=== PATIENT | female | born 1995 | race Caucasian/White ===

== ENCOUNTER 2017-09-24 20:45 | Emergency (ER) | payer BC ==
[2017-09-24 22:13] LABS: APPEARANCE,URINE SLIGHTLY-CLOUDY; BILIRUBIN,URINE NEGATIVE (NEGATIVE); COLOR,URINE YELLOW; GLUCOSE, URINE NEGATIVE (NEGATIVE); KETONES,URINE NEGATIVE (NEGATIVE); LEUKOCYTE ESTERASE,URINE LARGE (NEGATIVE); NITRITE,URINE NEGATIVE (NEGATIVE); PROTEIN,URINE NEGATIVE (NEGATIVE); URINE SPECIFIC GRAVITY 1.021; UROBILINOGEN,URINE NEGATIVE mg/dL (<2.0)
--- NOTE | 2017-09-24 22:20 | ER Document Report ---
ED GI/ - General Chief Complaint: Urinary Frequency Stated Complaint: URINARY SYMPTOMS Time Seen by Provider: 09/24/17 22:00 Mode of Arrival: Ambulatory Information source: Patient Notes: 22-year-old female presents to ED for complaint of frequent UTIs over the past month. She states she saw a doctor about 2 weeks ago who put on antibiotics for UTI. She states they did a urine and a culture date of the antibiotics that they treated her with were good for the infection she had. She states about a week ago she started having the burning and frequency again and it is gotten worse and now she has pain in bilateral lower back. She states she has never had a pelvic she has never had any kind of STD checking. She is sexually active with her boyfriend. Patient is alert and oriented respirations regular and unlabored speaking in full sentences. TRAVEL OUTSIDE OF THE [place] IN LAST 30 DAYS: No - HPI Patient complains to provider of: Flank pain, Vaginal pain, Other - Frequency urgency and burning with urination flank pain bilateral Onset: Last week Timing/Duration: Gradual, Worse Quality of pain: Burning Severity at maximum: Moderate Severity in ED: Moderate Pain Level: 3 Location: Left flank, Right flank, Suprapubic, Vaginal Vaginal bleeding (Compared to normal period): None Associated symptoms: Urinary frequency, Urinary urgency, Other - burning Exacerbated by: Denies Relieved by: Denies Similar symptoms previously: Yes Recently seen / treated by doctor: Yes - Related Data Allergies/Adverse Reactions: succinylcholine chloride [From Anectine] Allergy (Unknown, Verified 09/24/17 20: 46) Past Medical History - General Information source: Patient - Social History Smoking Status: Never Smoker Cigarette use (# per day): No Chew tobacco use (# tins/day): No Smoking Education Provided: No Frequency of alcohol use: None Drug Abuse: None Occupation: [employer] Lives with: Alone Family History: Reviewed & Not Pertinent Patient has suicidal ideation: No Patient has homicidal ideation: No - Past Medical History Cardiac Medical History: Reports: None Pulmonary Medical History: Reports: None EENT Medical History: Reports: None Neurological Medical History: Reports: None Endocrine Medical History: Reports: None Renal/ Medical History: Reports: Other - Frequent UTIs Malignancy Medical History: Reports: None GI Medical History: Reports: None Musculoskeletal Medical History: Reports None Skin Medical History: Reports None Psychiatric Medical History: Reports: None Traumatic Medical History: Reports: None Infectious Medical History: Reports: None Past Surgical History: Reports: Hx Oral Surgery - Jaw surgery for overbite - Immunizations Immunizations up to date: Yes Hx Diphtheria, Pertussis, Tetanus Vaccination: Yes Review of Systems - Review of Systems Constitutional: No symptoms reported EENT: No symptoms reported Cardiovascular: No symptoms reported Respiratory: No symptoms reported Gastrointestinal: No symptoms reported Genitourinary: Burning, Frequency, Urgency Female Genitourinary: No symptoms reported, Other - Vaginal burning Musculoskeletal: No symptoms reported Skin: No symptoms reported Hematologic/Lymphatic: No symptoms reported Neurological/Psychological: No symptoms reported -: Yes All other systems reviewed and negative Physical Exam - Vital signs Vitals: Temp Pulse Resp BP Pulse Ox 98.3 F 85 14 125/76 100 09/24/17 20:51 09/24/17 20:51 09/24/17 20:51 09/24/17 20:51 09/24/17 20:51 Interpretation: Normal - General General appearance: Appears well, Alert - HEENT Head: Normocephalic, Atraumatic Eyes: Normal Pupils: PERRL - Respiratory Respiratory status: No respiratory distress Chest status: Nontender Breath sounds: Normal Chest palpation: Normal - Cardiovascular Rhythm: Regular Heart sounds: Normal auscultation Murmur: No - Abdominal Inspection: Normal Distension: No distension Bowel sounds: Normal Tenderness: Nontender Organomegaly: No organomegaly - Genitourinary External exam: Normal Speculum exam: Normal Vaginal bleeding: None Bimanuel exam: Normal - Back Back: CVA tenderness - Bilateral - Extremities General upper extremity: Normal inspection, Nontender, Normal color, Normal ROM , Normal temperature General lower extremity: Normal inspection, Nontender, Normal color, Normal ROM , Normal temperature, Normal weight bearing. No: Razia's sign - Neurological Neuro grossly intact: Yes Cognition: Normal Orientation: AAOx4 Lorna Coma Scale Eye Opening: Spontaneous Lorna Coma Scale Verbal: Oriented Lorna Coma Scale Motor: Obeys Commands Lorna Coma Scale Total: 15 Speech: Normal Motor strength normal: LUE, RUE, LLE, RLE Sensory: Normal - Psychological Associated symptoms: Normal affect, Normal mood - Skin Skin Temperature: Warm Skin Moisture: Dry Skin Color: Normal Course - Re-evaluation Re-evalutation: 09/24/17 23:46 Patient elected not to receive treatment for prophylactically for her GC and chlamydia test. She states she does not think she has them and would prefer not to get a shot at this time. She was treated with Keflex for her UTI symptoms and a culture was sent on the urine. Patient was instructed to call tomorrow to find that the results of her GC and chlamydia test or if they were positive she would be called. - Vital Signs Vital signs: Temp Pulse Resp BP Pulse Ox 98.4 F 84 14 118/78 100 09/24/17 23:02 09/24/17 23:02 09/24/17 23:02 09/24/17 23:02 09/24/17 23:02 - Laboratory Laboratory results interpreted by me: 09/24/17 09/24/17 21:40 22:25 Urine Blood SMALL H SMALL H Ur Leukocyte Esterase LARGE H MODERATE H Discharge - Discharge Clinical Impression: UTI (urinary tract infection) Qualifiers: Urinary tract infection type: site unspecified Hematuria presence: without hematuria Qualified Code(s): N39.0 - Urinary tract infection, site not specified Condition: Stable Disposition: HOME, SELF-CARE Additional Instructions: URINARY TRACT INFECTION: Your evaluation indicates that you have a urinary tract infection. This is due to germs growing in the bladder. This is a common problem. This infection usually responds quickly to antibiotics. Your antibiotic should be taken exactly as prescribed. Drink plenty of fluids -- three to four quarts a day. Occasionally, a bladder anesthetic will be prescribed to help stop the feeling of urgency until the antibiotic has a chance to clear the infection. This may cause your urine to be dark orange. Certain urine infections require a culture. If the doctor obtained a culture, the results will be back in two days. You should call to see if a change in treatment is needed. A repeat urinalysis after you finish treatment is often recommended. The physician will let you know if further testing is required. Call the doctor if you develop fever, chills, flank pain, inability to urinate, or blood in the urine. CEPHALEXIN: The antibiotic you've been prescribed is a member of the cephalosporin class. This type of antibiotic covers a wide variety of infections, including those of the skin, lungs, and urinary tract. It's useful for staph infections. This antibiotic is slightly similar to the penicillin family. In rare cases , a person who is allergic to penicillin will also be allergic to this medication. If you have had a severe allergic reaction to penicillin, and have not taken this antibiotic since that time, notify your doctor. Antibiotics which cover many germs ("broad spectrum" antibiotics) are more likely to cause diarrhea or "yeast" infections. Women prone to vaginal yeast problems may suffer an attack after taking this antibiotic. In infants, oral thrush (white spots "stuck" on the cheek) or yeast diaper rash may result. See your doctor if these problems occur. Call at once if you develop itching, hives , shortness of breath, or lightheadedness. FOLLOW-UP CARE: If you have been referred to a physician for follow-up care, call the physician s office for an appointment as you were instructed or within the next two days. If you experience worsening or a significant change in your symptoms, notify the physician immediately or return to the Emergency Department at any time for re-evaluation. Prescriptions: Cephalexin Monohydrate [Keflex 500 mg Capsule] 500 mg PO Q6H 10 Days capsule Referrals: BLAINE CHANDRA MD [ACTIVE STAFF] - Follow up as needed
[2017-09-24 22:40] LABS: APPEARANCE,URINE SLIGHTLY-CLOUDY; BILIRUBIN,URINE NEGATIVE (NEGATIVE); COLOR,URINE YELLOW; GLUCOSE, URINE NEGATIVE (NEGATIVE); KETONES,URINE NEGATIVE (NEGATIVE); LEUKOCYTE ESTERASE,URINE MODERATE (NEGATIVE); NITRITE,URINE NEGATIVE (NEGATIVE); PROTEIN,URINE NEGATIVE (NEGATIVE); URINE SPECIFIC GRAVITY 1.024; UROBILINOGEN,URINE NEGATIVE mg/dL (<2.0)
[2017-09-24 22:43] LABS: RBCS (WET MOUNT) RARE RBCS SEEN; T.VAGINALIS (WET MOUNT) NO TRICHOMONAS SEEN; WBCS (WET MOUNT) FEW WBCS SEEN; YEAST (WET MOUNT) NO YEAST SEEN
[2017-09-24] MEDS ORDERED: CEPHALEXIN 500 MG CAPSULE PO ONE (22:48)
[2017-09-24 23:07] VITALS: BP 118/78
[2017-09-25 00:01] LABS: CHLAM PCR NOT DETECTED (NOT DETECT); GON PCR NOT DETECTED (NOT DETECT)
== END 2017-09-24 23:07 | disposition home or self-care (01) ==
LOC: ER 20:45
DX: N39.0 Urinary tract infection, site not specified (principal); R10.2 Pelvic and perineal pain; Z87.440 Personal history of urinary (tract) infections
CPT/HCPCS: 81001; 81025; 87086; 87088; 87186; 87210; 87491; 87591; 99283

== ENCOUNTER 2018-12-04 06:24 | Inpatient (IN) | payer BC ==
[2018-12-04] MEDS ORDERED: RINGERS SOLUTION,LACTATED 1,000 ML IV PRN (06:39)
[2018-12-04] MEDS ORDERED: OXYTOCIN/NORMAL SALINE 20 UNIT/1,000 ML RTUINJ IV PRN (06:39)
[2018-12-04] MEDS ORDERED: RINGERS SOLUTION,LACTATED 300 ML IV ONE (06:39)
[2018-12-04 07:42] LABS: APPEARANCE,URINE SLIGHTLY-CLOUDY; BILIRUBIN,URINE NEGATIVE (NEGATIVE); COLOR,URINE YELLOW; GLUCOSE, URINE NEGATIVE (NEGATIVE); KETONES,URINE NEGATIVE (NEGATIVE); LEUKOCYTE ESTERASE,URINE TRACE (NEGATIVE); NITRITE,URINE NEGATIVE (NEGATIVE); PROTEIN,URINE NEGATIVE (NEGATIVE); URINE SPECIFIC GRAVITY 1.016; UROBILINOGEN,URINE NEGATIVE mg/dL (<2.0)
[2018-12-04] MEDS ORDERED: LIDOCAINE 1% INJ-PF (10 MG/ML) 30 ML SDV ONE (07:44)
[2018-12-04] MEDS ORDERED: MISOPROSTOL 0.2 MG TABLET ONE (07:44)
[2018-12-04] MEDS ORDERED: OXYTOCIN/NORMAL SALINE 20 UNIT/1,000 ML RTUINJ ONE (07:44)
[2018-12-04] MEDS ORDERED: OXYTOCIN 10 UNIT/ML VIAL ONE (07:44)
[2018-12-04 07:49] LABS: ABSOLUTE EOSINOPHILS # (AUTO) 0.2 10^3/uL (0.0-0.6); ABSOLUTE LYMPHOCYTES (AUTO) 1.4 10^3/uL (0.5-4.7); ABSOLUTE MONOCYTES (AUTO) 0.6 10^3/uL (0.1-1.4); ABSOLUTE NEUT (AUTO) 6.9 10^3/uL (1.7-8.2); BASOPHILS % (AUTO) 0.3 % (0-2); EOSINOPHILS % (AUTO) 1.8 % (0-6); HEMATOCRIT 34.3 % (36.0-47.0); HEMOGLOBIN 11.5 g/dL (12.0-15.5); LYMPHOCYTES % (AUTO) 15.1 % (13-45); MEAN CORPUSCULAR HGB CONC 33.5 g/dL (32.0-36.0); MEAN CORPUSCULAR VOLUME 84 fl (80-97); MONOCYTES % (AUTO) 6.5 % (3-13); PLATELET COUNT 211 10^3/uL (150-450); RED BLOOD COUNT 4.11 10^6/uL (3.72-5.28); RED CELL DISTRIBUTION WIDTH 13.9 % (11.5-14.0); SEGMENTED NEUTROPHILS % (AUTO) 76.3 % (42-78); TOTAL CELLS COUNTED % (AUTO) 100 %
[2018-12-04 08:05] LABS: URINE AMPHETAMINES SCREEN NEGATIVE; URINE BARBITURATES SCREEN NEGATIVE; URINE BENZODIAZEPINES SCREEN NEGATIVE; URINE COCAINE SCREEN NEGATIVE; URINE MARIJUANA (THC) SCREEN NEGATIVE; URINE METHADONE SCREEN NEGATIVE; URINE PHENCYCLIDINE SCREEN NEGATIVE
--- NOTE | 2018-12-04 11:25 | Admission Physical ---
Datetime Report Generated by CPN: 12/04/2018 11:25 CURRENT ADMISSION Hx Assessment: The History has been Reviewed and is Current Chief Complaint: Scheduled Induction of Labor Indication for Induction: Postterm Admit Impression : Postterm, Intrauterine ; No Active Labor; Induction of Labor Admit Plan: Admit to Unit ALLERGIES Medication Allergies: Yes Medication Allergies: succinylcholine chloride (12/04/2018) Latex: No Latex Allergies OBSTETRICAL HISTORY EDC: 11/27/2018 00:00 : 1 Para: 0 Term: 0 : 0 SAB: 0 IAB: 0 Ectopic: 0 Livin Cesareans: 0 VBACs: 0 Multiple Births: 0 Gestational Diabetes: No Rh Sensitization: No Incompetent Cervix: No MAIDA: No Infertility: No ART Treatment: No Uterine Anomaly: No IUGR: No Hx Previous C/S: No Macrosomia: No Hx Loss/Stillborn: No PIH: No Hx : No Placenta Previa/Abruption: No Depression/PP Depression: No PTL/PROM: No Post Hemorrhage: No Obstetrical History Comments: G1 - current SEE RECORDS Alcohol: No Marijuana : No Cocaine: No Other Illicit Drugs: No Cigarettes: Never Smoker. 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: No Heart Disease: No Hosp/Surgery: Yes Autoimmune Disorder: No Anesthetic Complications: No Kidney Disease: No Abnormal Pap Smear: No Neuro/Epilepsy: No Psychiatric Disorders: No Other Medical Diseases: No Hepatitis/Liver Disease: No Significant Family History: No Varicosities/Phlebitis: No Trauma/Violence : No Thyroid Dysfunction: No Medical History Comments: jaw surgery 2012 INFECTIOUS HISTORY Gonorrhea: No Genital Herpes: No Chlamydia: No Tuberculosis: No Syphilis: No Hepatitis: No HIV/AIDS Exposure: No Rash or Viral Illness: No HPV: No PHYSICAL EXAM General: Normal HEENT: Normal Neurologic: Normal Thyroid: Normal Heart: Normal Lungs: Normal Breast: Normal Back: Normal Abdomen: Normal Genitourinary Exam: Normal Extremities: Normal DTRs: Normal Pelvic Type: Adequate Physical Exam Comments: G 1, GBS neg Vital Signs: Reviewed FETUS A EGA: 41.0 Monitoring: External US Accelerations: 15X15 Decelerations: None FHR Category: Category I Admit Comment: Admitted to LD for IOL for 41 weeks, Pitocin induction, Cat 1 strip Monitor closely, Epidural if needed PLANS FOR LABOR AND DELIVERY Labor and Delivery: None Pain Management: Natural Feeding Preference: Breast Benefit of Breast Feed Discussed: Yes Circumcision: Yes INFORMED CONSENT Assignment: Kateryna Coy MD Signature: with User ID: [email or web address] : with User ID: [email or web address]
[2018-12-04] MEDS ORDERED: NALBUPHINE HCL INJ 10 MG/1 ML AMPULE INJ ONE ×2 (11:48→11:49)
[2018-12-04] MEDS ORDERED: NALBUPHINE HCL INJ 10 MG/1 ML AMPULE ONE (11:50)
[2018-12-04] MEDS ORDERED: FENTANYL CITRATE INJ/PF 100 MCG/2 ML AMPUL ONE (13:20)
[2018-12-04] MEDS ORDERED: PHENYLEPHRINE HCL INJ/PF 10 MG/1 ML SDV ONE (13:20)
[2018-12-04] MEDS ORDERED: FENTANYL/BUPIVACAINE/NS/PF 300 MCG/150 ML RTUINJ EPI ONE (13:20)
[2018-12-04] MEDS ORDERED: EPHEDRINE SULFATE INJ 50 MG/1 ML AMPULE ONE (13:20)
[2018-12-04] MEDS ORDERED: BUPIVACAINE HCL 0.25 % INJ/PF (2.5 MG/1 ML) 30 ML VIAL ONE (13:21)
[2018-12-04] MEDS ORDERED: DIBUCAINE 1% OINTMENT 56 GM TP PRN (21:40)
[2018-12-04] MEDS ORDERED: BENZOCAINE/MENTHOL AEROSOL SPRAY 56 ML TOP PRN (21:40)
[2018-12-04] MEDS ORDERED: OXYTOCIN/NORMAL SALINE 1,000 ML IV PRN (21:40)
[2018-12-04] MEDS ORDERED: ACETAMINOPHEN WITH CODEINE #3 TABLET PO PRN ×2 (21:40)
[2018-12-04] MEDS ORDERED: ZOLPIDEM TARTRATE 5 MG TABLET PO PRN (21:40)
[2018-12-04] MEDS ORDERED: DIPH/PERTUSS(ACELL)/TETANUS VAC/PF 0.5 ML SYR (>=10YO) IM PRN (21:40)
[2018-12-04] MEDS ORDERED: MEASLES,MUMPS&RUBELLA VACC/PF 0.5 ML VIAL SUBCUT PRN (21:40)
[2018-12-04] MEDS: IBUPROFEN 800 MG TABLET PO SCH (21:55)
[2018-12-05] MEDS: IBUPROFEN 800 MG TABLET PO SCH ×3 (06:13→21:06)
[2018-12-05] MEDS: SENNOSIDES/DOCUSATE 8.6-50 MG 1 EACH TABLET PO SCH ×2 (07:52→09:18)
[2018-12-05] MEDS: PRENATAL VITAMIN W DHA CAPSULE PO SCH (09:18)
[2018-12-05] MEDS: FERROUS SULFATE 325 MG TABLET PO SCH ×2 (09:18→17:35)
[2018-12-05] MEDS: DOCUSATE SODIUM 100 MG CAPSULE PO SCH ×2 (09:18→17:35)
--- NOTE | 2018-12-05 10:29 | PDOC PROGRESS REPORT ---
Subjective-OB Progress Note for:: 12/05/18 Subjective: Doing well, no c/o, , voiding, ambulating Physical Exam (OB) Vital Signs: Temp Pulse Resp BP Pulse Ox 98.2 F 71 18 115/67 98 12/05/18 07:44 12/05/18 07:44 12/05/18 07:44 12/05/18 07:44 12/05/18 07:44 Intake & Output 12/04/18 12/05/18 12/06/18 06:59 06:59 06:59 Intake Total 500 1000 Balance 500 1000 Weight 67.3 kg - PIH/Pre-Eclampsia Headache: Absent Epigastric Pain: No Visual Changes: No - Lochia Lochia Amount: Scant < 10 ml Lochia Color: Rubra/Red - Abdomen Description: Tender, Soft Hernia Present: No Fundal Description: Firm, Midline Fundal Height: u/u - u/2 Objective-Diagnostic Laboratory: 12/04/18 07:25 Assessment and Plan(PN) - Assessment and Plan (1) Delivery normal Is this a current diagnosis for this admission?: Yes (2) Status post induction of labor Is this a current diagnosis for this admission?: Yes - Time Spent with Patient Time with patient: Less than 15 minutes Medications reviewed and adjusted accordingly: Yes - Disposition Anticipated Discharge: Home
[2018-12-06] MEDS: IBUPROFEN 800 MG TABLET PO SCH ×2 (05:29→14:27)
[2018-12-06 08:17] VITALS: BP 113/68
--- NOTE | 2018-12-06 09:06 | PDOC PROGRESS REPORT ---
Subjective-OB Progress Note for:: 12/06/18 Subjective: Doing well, hsb at [facility], , no c/o, ready to go home, scant bleeding Physical Exam (OB) Vital Signs: Temp Pulse Resp BP Pulse Ox 97.9 F 69 18 113/68 97 12/06/18 08:31 12/06/18 08:31 12/06/18 08:31 12/06/18 07:36 12/06/18 08:31 Intake & Output 12/05/18 12/06/18 12/07/18 06:59 06:59 06:59 Intake Total 500 1600 Balance 500 1600 - PIH/Pre-Eclampsia Headache: Absent Epigastric Pain: No Visual Changes: No - Lochia Lochia Amount: Small 10-25 ml Lochia Color: Rubra/Red - Abdomen Description: Tender, Soft Hernia Present: No Fundal Description: Firm, Midline Fundal Height: u/u - u/2 Objective-Diagnostic Laboratory: 12/04/18 07:25 Assessment and Plan(PN) - Assessment and Plan (1) Delivery normal Is this a current diagnosis for this admission?: Yes (2) Status post induction of labor Is this a current diagnosis for this admission?: Yes - Time Spent with Patient Time with patient: Less than 15 minutes Medications reviewed and adjusted accordingly: Yes - Disposition Anticipated Discharge: Home Within: within 24 hours
--- NOTE | 2018-12-06 09:09 | PDOC DISCHARGE SUMMARY ---
Impression - Admit/DC Date/PCP Admission Date/Primary Care Provider: 12/04/18 06:24 Discharge Date: 12/06/18 - Discharge Diagnosis (1) Delivery normal Is this a current diagnosis for this admission?: Yes (2) Status post induction of labor Is this a current diagnosis for this admission?: Yes - Additional Information Resuscitation Status: Full Code Discharge Diet: As Tolerated, Regular Discharge Activity: Activity As Tolerated, No Lifting Over 10 Pounds, No Lifting/Push/Pulling, Pelvic Rest Home Medications: Prenat 115/Iron Fum/Folic/Dss [ 19 Tablet] 115 mg PO DAILY 12/04/18 HPI Gestational Age: 41 Reason(s) for Admission: Induction of Labor Procedures: NST, Ultrasound Intrapartum Procedure(s): Spontaneous Vaginal Delivery Complication(s): Laceration-Periurethral Laceration-Degree: 1st Hospital Course Hospital Course: routine Results Laboratory Results: WBC 9.0 10^3/uL (4.0-10.5) 12/04/18 07:25 RBC 4.11 10^6/uL (3.72-5.28) 12/04/18 07:25 Hgb 11.5 g/dL (12.0-15.5) L 12/04/18 07:25 Hct 34.3 % (36.0-47.0) L 12/04/18 07:25 MCV 84 fl (80-97) 12/04/18 07:25 MCH 28.0 pg (27.0-33.4) 12/04/18 07:25 MCHC 33.5 g/dL (32.0-36.0) 12/04/18 07:25 RDW 13.9 % (11.5-14.0) 12/04/18 07:25 Plt Count 211 10^3/uL (150-450) 12/04/18 07:25 Lymph % (Auto) 15.1 % (13-45) 12/04/18 07:25 [place] % (Auto) 6.5 % (3-13) 12/04/18 07:25 Eos % (Auto) 1.8 % (0-6) 12/04/18 07:25 Baso % (Auto) 0.3 % (0-2) 12/04/18 07:25 Absolute Neuts (auto) 6.9 10^3/uL (1.7-8.2) 12/04/18 07:25 Absolute Lymphs (auto) 1.4 10^3/uL (0.5-4.7) 12/04/18 07:25 Absolute Monos (auto) 0.6 10^3/uL (0.1-1.4) 12/04/18 07:25 Absolute Eos (auto) 0.2 10^3/uL (0.0-0.6) 12/04/18 07:25 Absolute Basos (auto) 0.0 10^3/uL (0.0-0.2) 12/04/18 07:25 Seg Neutrophils % 76.3 % (42-78) 12/04/18 07:25 Urine Color YELLOW 12/04/18 06:40 Urine Appearance SLIGHTLY-CLOUDY 12/04/18 06:40 Urine pH 6.0 (5.0-9.0) 12/04/18 06:40 Ur Specific [place] 1.016 12/04/18 06:40 Urine Protein NEGATIVE mg/dL (NEGATIVE) 12/04/18 06:40 Urine Glucose (UA) NEGATIVE mg/dL (NEGATIVE) 12/04/18 06:40 Urine Ketones NEGATIVE mg/dL (NEGATIVE) 12/04/18 06:40 Urine Blood NEGATIVE (NEGATIVE) 12/04/18 06:40 Urine Nitrite NEGATIVE (NEGATIVE) 12/04/18 06:40 Urine Bilirubin NEGATIVE (NEGATIVE) 12/04/18 06:40 Urine Urobilinogen NEGATIVE mg/dL (<2.0) 12/04/18 06:40 Ur Leukocyte Esterase TRACE (NEGATIVE) H 12/04/18 06:40 Urine Ascorbic Acid NEGATIVE (NEGATIVE) 12/04/18 06:40 Urine Opiates Screen NEGATIVE 12/04/18 06:40 Urine Methadone Screen NEGATIVE 12/04/18 06:40 Ur Barbiturates Screen NEGATIVE 12/04/18 06:40 Ur Phencyclidine Scrn NEGATIVE 12/04/18 06:40 Ur Amphetamines Screen NEGATIVE 12/04/18 06:40 U Benzodiazepines Scrn NEGATIVE 12/04/18 06:40 Urine Cocaine Screen NEGATIVE 12/04/18 06:40 U Marijuana (THC) Screen NEGATIVE 12/04/18 06:40 Blood Type AB POSITIVE 12/04/18 07:25 Antibody Screen NEGATIVE 12/04/18 07:25 Plan Health Concerns: reviewed S&S to report, routine pp care, baby home with parents Plan of Treatment: routine
[2018-12-06] MEDS: DOCUSATE SODIUM 100 MG CAPSULE PO SCH (09:45)
[2018-12-06] MEDS: FERROUS SULFATE 325 MG TABLET PO SCH (09:45)
[2018-12-06] MEDS: SENNOSIDES/DOCUSATE 8.6-50 MG 1 EACH TABLET PO SCH (09:45)
[2018-12-06] MEDS: PRENATAL VITAMIN W DHA CAPSULE PO SCH (09:45)
--- NOTE | 2018-12-09 09:48 | Delivery Summary ---
Del Sum A-C Datetime Report Generated by CPN: 12/09/2018 09:48 DELIVERY PERSONNEL DELIVERY PERSONNEL: [id number] Delivery Doctor:: Eda Eid MD Labor and Delivery Nurse:: Jillian Mchugh RN Cellular Phone Repairer/CATALOG SPECIALIST: Becky Ayers, SEAM FELLER Additional Personnel: : Payal Michaudmansifabian, RNC MATERNAL INFORMATION Delivery Anesthesia: Epidural Medications After Delivery: Pitocin Drip 20 Units/1000ml NSS Estimated Blood Loss (ml): 100 Delivery QBL: 100 Maternal Complications: None Provider Comments: Called to patients room, cervix completely dilated and patient pushing. She further pushed for a short period of time and delivered without incidence. After delivery of the head in JOLENE position, the shoulders and rest of the body followed easily. The cord was clamped after a 30 second delay as the was vigorous. Infant oral and nasal suctioned and then placed skin to skin with Mother. Both stable after delivery. LABOR SUMMARY EDC: 11/27/2018 00:00 No. Babies in Womb: 1 Attempted: No Labor Anesthesia: Epidural LABOR INFORMATION Reason for Induction: Post Dates Onset of Labor: 12/04/2018 11:29 Complete Dilatation: 12/04/2018 17:39 Oxytocin: Induction Group B Beta Strep: neg Antibiotics # of Doses: 0 Steroids Given: None Reason Steroids Not Administered: Not Applicable MEMBRANES Membranes Rupture Method: Artificial Rupture of Membranes: 12/04/2018 11:29 Length of Rupture (hr): 7.10 Amniotic Fluid Color: Clear Amniotic Fluid Amount: Small Amniotic Fluid Odor: None STAGES OF LABOR Stage 1 hr: 6 Stage 1 min: 10 Stage 2 hr: 0 Stage 2 min: 56 Stage 3 hr: 0 Stage 3 min: 4 Total Time in Labor hr: 7 Total Time in Labor min: 10 VAGINAL DELIVERY Episiotomy: None Laceration #1: Periurethral Laceration Extension #1: First Degree Laceration Repair: Yes Laceration Repair Note: Less than 1 cm length first degree periurethral which was repaired with 3-0 chromic in a running locked fashion. Sponge Count Correct: N/A Sharps Count Correct: Yes CSECTION DELIVERY Primary Indication: N/A Secondary Indication: N/A CSection Incidence: N/A Labor: N/A Elective: N/A CSection Incision: N/A BABY A INFORMATION Infant Delivery Date/Time: 12/04/2018 18:35 Method of Delivery: Vaginal Method of Delivery: Vaginal Born in Route : No : N/A Forceps: N/A Vacuum Extraction: N/A Shoulder Dystocia : No PRESENTATION/POSITION BABY A Presentation: Cephalic Cephalic Presentation: Vertex Vertex Position: Right Occipital Anterior Breech Presentation: N/A PLACENTA INFORMATION BABY A Placenta Delivery Time : 12/04/2018 18:39 Placenta Method of Delivery: Spontaneous Placenta Method of Delivery: Spontaneous Placenta Status: Delivered SCORES BABY A Heart Rate 1 min: >100 bpm Resp Effort 1 min: Good Cry Reflex Irritability 1 min: Cough or Sneeze or Pulls Away Muscle Tone 1 min: Active Motion Color 1 min: Body Redbird Smith, Extremities Blue Resuscitation Effort 1 min: Tactile Stimulation SCORE 1 MIN: 9 Heart Rate 5 min: >100 bpm Resp Effort 5 min: Good Cry Reflex Irritability 5 min: Cough or Sneeze or Pulls Away Muscle Tone 5 min: Active Motion Color 5 min: Body Redbird Smith, Extremities Blue Resuscitation Effort 5 min: N/A SCORE 5 MIN: 9 INFANT INFORMATION BABY A Gestational Age at Delivery: 41.0 Gestational Status: Late Term- 41- 41.6 Weeks Outcome : Liveborn Infant Condition : Stable Sex: Male Infant Sex: Male IDENTIFICATION BABY A Infant Verification Date/Time: 12/04/2018 22:46 ID Band Number: [id number] Mother's Name Verified: Yes RN Verifying Infant: David, A. RN Additional Verifying Personnel: Welcome FundsPrasanna RN WEIGHT/LENGTH BABY A Birthweight (gm): 3450 Infant Weight (lb): 7 Weight (oz): 10 Infant Length (in): 20.50 Infant Length (cm): 52.07 CORD INFORMATION BABY A No. Cord Vessels: 3 Nuchal Cord : N/A Cord Blood Taken: Yes-For Storage (Mom's Blood type +) Suction: Mouth; Nose ASSESSMENT BABY A Complications: None Physical Findings at Delivery: Within Normal Limits Infant Respirations: Appears Normal Skin to Skin: Yes Radio Division Lieutenant/ALS Called : No Infant Care By: DPrasanna Rock RN Transferred To: Remains with Mother BABY B INFORMATION : N/A SIGNATURES Signature: with User ID: Mary : with User ID: Mary
== END 2018-12-06 15:18 | disposition home or self-care (01) | DRG 807 ==
LOC: LR 06:24 → 2S 21:06
PROVIDERS: ADMIT Obstetrics & Gynecology; ATTEND Obstetrics & Gynecology
PROC: 10E0XZZ Delivery of Products of Conception, External Approach (ICD-10-PCS; principal; 2018-12-04)
PROC: 0UQMXZZ Repair Vulva, External Approach (ICD-10-PCS; 2018-12-04)
DX: O48.0 Post-term pregnancy (principal); Z37.0 Single live birth; O71.82 Other specified trauma to perineum and vulva; Z3A.41 41 weeks gestation of pregnancy
CPT/HCPCS: 36415; 80307; 81005; 85025; 86592; 86850; 86900; 86901; J2300; J2370; J2590; J3010; J3490

== ENCOUNTER 2020-01-10 00:11 | Emergency (ER) | payer BC, MEDICAID ==
[2020-01-10 01:27] LABS: APPEARANCE,URINE TURBID; BILIRUBIN,URINE NEGATIVE (NEGATIVE); COLOR,URINE YELLOW; GLUCOSE, URINE NEGATIVE (NEGATIVE); KETONES,URINE NEGATIVE (NEGATIVE); LEUKOCYTE ESTERASE,URINE LARGE (NEGATIVE); NITRITE,URINE NEGATIVE (NEGATIVE); PROTEIN,URINE 100 mg/dL (NEGATIVE); URINE SPECIFIC GRAVITY 1.011; UROBILINOGEN,URINE NEGATIVE mg/dL (<2.0)
--- NOTE | 2020-01-10 01:48 | ER Document Report ---
ED Medical Screen (RME) - General Chief Complaint: Flank Pain Stated Complaint: URGENCY,FREQUENCY Time Seen by Provider: 01/10/20 00:34 Mode of Arrival: Ambulatory Information source: Patient Notes: 24-year-old female patient presented to the emergency department with recurrent urinary tract infection. Patient reports she is 18 weeks . She states she has had intermittent UTIs for the last few months. Most recently 2 weeks ago she was treated with Rocephin and put on a prescription of Bactrim. She states she never took the Bactrim as she was worried it might hurt her developin g . She states she spoke to the pharmacist who recommended not taking the medication and to just wait and see if the Rocephin helped. She only received 1 dose of Rocephin. She states that approximately 2 days ago she started having dysuria and urinary frequency as well as left-sided low back pain. She denies any fever chills, reports nausea but denies any vomiting. Patient appears well, nontoxic. No CVA tenderness elicited. I have greeted and performed a rapid initial assessment of this patient. A comprehensive ED assessment and evaluation of the patient, analysis of test resu lts and completion of the medical decision making process will be conducted by additional ED providers. I have specifically instructed the patient or family members with the patient to immediately return to any nursing staff should anything change in the patient's condition or with their chief complaint. TRAVEL OUTSIDE OF THE [place] IN LAST 30 DAYS: No - Related Data Allergies/Adverse Reactions: succinylcholine chloride [From Anectine] Allergy (Unknown, Verified 12/04/18 06:39) Past Medical History - Social History Frequency of alcohol use: None Drug Abuse: None - Past Medical History Cardiac Medical History: Denies: Hx Coronary Artery Disease, Hx Heart Attack, Hx Hypertension Pulmonary Medical History: Denies: Hx Asthma, Hx Bronchitis, Hx COPD, Hx Pneumonia Neurological Medical History: Denies: Hx Cerebrovascular Accident, Hx Seizures Musculoskeltal Medical History: Denies Hx Arthritis Past Surgical History: Reports: Hx Oral Surgery - Jaw surgery for overbite. Denies: Hx Pacemaker - Immunizations Immunizations up to date: Yes Hx Diphtheria, Pertussis, Tetanus Vaccination: Yes Physical Exam - Vital signs Vitals: Temp Pulse Resp BP Pulse Ox 98.3 F 101 H 20 125/67 100 01/10/20 00:19 01/10/20 00:19 01/10/20 00:19 01/10/20 00:19 01/10/20 00:19 Course - Vital Signs Vital signs: Temp Pulse Resp BP Pulse Ox 98.3 F 101 H 20 125/67 100 01/10/20 00:39 01/10/20 00:19 01/10/20 00:19 01/10/20 00:19 01/10/20 00:19 - Laboratory Laboratory results interpreted by me: 01/10/20 00:45 Urine Protein 100 H Urine Blood MODERATE H Ur Leukocyte Esterase LARGE H
[2020-01-10 04:14] LABS: ABSOLUTE EOSINOPHILS # (AUTO) 0.1 10^3/uL (0.0-0.6); ABSOLUTE MONOCYTES (AUTO) 0.6 10^3/uL (0.1-1.4); ABSOLUTE NEUT (AUTO) 10.1 10^3/uL (1.7-8.2); BASOPHILS % (AUTO) 0.3 % (0-2); EOSINOPHILS % (AUTO) 1.2 % (0-6); HEMATOCRIT 37.4 % (36.0-47.0); HEMOGLOBIN 12.9 g/dL (12.0-15.5); LYMPHOCYTES % (AUTO) 8.7 % (13-45); MEAN CORPUSCULAR HEMOGLOBIN 28.9 pg (27.0-33.4); MEAN CORPUSCULAR HGB CONC 34.5 g/dL (32.0-36.0); MEAN CORPUSCULAR VOLUME 84 fl (80-97); MONOCYTES % (AUTO) 5.3 % (3-13); PLATELET COUNT 239 10^3/uL (150-450); RED BLOOD COUNT 4.46 10^6/uL (3.72-5.28); RED CELL DISTRIBUTION WIDTH 13.4 % (11.5-14.0); SEGMENTED NEUTROPHILS % (AUTO) 84.5 % (42-78); TOTAL CELLS COUNTED % (AUTO) 100 %
--- NOTE | 2020-01-10 04:15 | ER Document Report ---
ED GI/ - General Chief Complaint: Flank Pain Stated Complaint: URGENCY,FREQUENCY Time Seen by Provider: 01/10/20 00:34 Primary Care Provider: EDGAR TAYLOR [Primary Care Provider] - Follow up as needed Mode of Arrival: Ambulatory TRAVEL OUTSIDE OF THE [place] IN LAST 30 DAYS: No - HPI Notes: 01/10/20 04:10 Patient is a 24-year-old female who is a G2, P1 at 18 weeks and presents with dysuria, flank pain, left lower quadrant pain. Patient states that she has had a urinary infection for several weeks. She was given a Rocephin shot and started on Bactrim 2 weeks ago by her HOUSEKEEPING AID. Patient did not take the Bactrim because she was afraid of side effects to the baby. She states that the urinary symptoms resolved after the Rocephin shot. Yesterday, she again developed dysuria. She denies any blood in the urine. Today, she developed pain in her left flank. She has had the symptoms off and on since September and has been on numerous antibiotics. She states she has some nausea. No vomiting. No fevers. - Related Data Allergies/Adverse Reactions: succinylcholine chloride [From Anectine] Allergy (Unknown, Verified 12/04/18 06:39) Past Medical History - General Information source: Patient - Social History Smoking Status: Never Smoker Frequency of alcohol use: None Drug Abuse: None Family History: Reviewed & Not Pertinent Patient has homicidal ideation: No - Past Medical History Cardiac Medical History: Denies: Hx Coronary Artery Disease, Hx Heart Attack, Hx Hypertension Pulmonary Medical History: Denies: Hx Asthma, Hx Bronchitis, Hx COPD, Hx Pneumonia Neurological Medical History: Denies: Hx Cerebrovascular Accident, Hx Seizures Musculoskeletal Medical History: Denies Hx Arthritis Past Surgical History: Reports: Hx Oral Surgery - Jaw surgery for overbite. Denies: Hx Pacemaker - Immunizations Immunizations up to date: Yes Hx Diphtheria, Pertussis, Tetanus Vaccination: Yes Review of Systems - Review of Systems Notes: CONSTITUTIONAL: No fever, fatigue or weight loss. SKIN: No rash. HENT: No congestion, ear pain, or sore throat. EYES: No recent vision problems or eye pain. CARDIOVASCULAR: No chest pain or edema. RESPIRATORY: No cough, shortness of breath, congestion, or wheezing. GASTROINTESTINAL: No vomiting, bloody stools or diarrhea. Positive for abdominal pain and nausea. GENITOURINARY: Positive for dysuria. No hematuria. MUSCULOSKELETAL: No joint pain or swelling. LYMPHATIC: No swollen glands. NEUROLOGIC: No seizures. No headache, focal weakness or sensory changes. HEMATOLOGIC: No unusual bruising or bleeding. PSYCHIATRIC: No depression or anxiety. Physical Exam - Vital signs Vitals: Temp Pulse Resp BP Pulse Ox 98.3 F 101 H 20 125/67 100 01/10/20 00:19 01/10/20 00:19 01/10/20 00:19 01/10/20 00:19 01/10/20 00:19 - General General appearance: Appears well Notes: VITAL SIGNS: Within normal limits. GENERAL: No acute distress, non-toxic appearance. HEAD: Normal with no signs of head trauma. EYES: EOMI, conjunctiva normal, no discharge. EARS: Hearing grossly intact. NOSE: Normal. NECK: Normal range of motion, no tenderness, supple, no lymphadenopathy, No adenopathy, no JVD. CHEST: Clear breath sounds bilaterally. No wheezes, rales, or rhonchi. CARDIAC: Regular rate and rhythm. S1 and S2, without murmurs, gallops, or rubs. VASCULAR: No Edema. ABDOMEN: Normal and soft with no tenderness, no masses or pulsatile masses. Discomfort to left flank palpation. GASTROINTESTINAL: Gravid abdomen. GENITOURINARY: Normal, No tenderness MUSCULOSKELETAL: Good range of motion of all major joints. Extremities without clubbing, cyanosis or edema. NEUROLOGICAL: Alert and oriented x 3. No focal sensory or strength deficits. Speech normal. Follows commands appropriately. PSYCHIATRIC: Normal Affect, judgement and mood. SKIN: Normal appearance with no rashes or lesions. Course - Re-evaluation Re-evalutation: 01/10/20 04:14 Patient is has evidence of a UTI. She also has some left lower quadrant abdo garima pain. I will obtain ultrasounds of the flank as well as the abdomen. 01/10/20 06:08 Patient's ultrasound shows left hydronephrosis. I did discuss the results of the ultrasounds with the on-call HOUSEKEEPING AID, Dr. Castañeda. He states that she had a culture that was negative 2 weeks ago. He states that she has had E. coli in November in the urine. She has an allergy to Macrobid. He recommended giving her Rocephin in the ED and sending her home with an antibiotic. Patient will be given Keflex. She was instructed to follow-up with OB. Patient was given strict return precautions for any fevers, vomiting, worsening pain. I asked patient about STDs and she states she was tested and was negative and is not concerned. Denying any vaginal bleeding as well. 01/11/20 01:52 - Vital Signs Vital signs: Temp Pulse Resp BP Pulse Ox 98.5 F 81 18 100/64 100 01/10/20 06:51 01/10/20 06:51 01/10/20 06:51 01/10/20 06:51 01/10/20 06:51 - Laboratory Result Diagrams: 01/10/20 03:53 01/10/20 03:53 Laboratory results interpreted by me: 01/10/20 01/10/20 01/10/20 00:45 03:53 03:53 WBC 12.0 H Lymph % (Auto) 8.7 L Absolute Neuts (auto) 10.1 H Seg Neutrophils % 84.5 H Sodium 134.6 L Carbon Dioxide 21 L BUN 5 L Creatinine 0.46 L Urine Protein 100 H Urine Blood MODERATE H Ur Leukocyte Esterase LARGE H Discharge - Discharge Clinical Impression: Second trimester Urinary tract infection Qualifiers: Urinary tract infection type: site unspecified Hematuria presence: without hematuria Qualified Code(s): N39.0 - Urinary tract infection, site not specified Hydronephrosis Qualifiers: Hydronephrosis type: other Qualified Code(s): N13.39 - Other hydronephrosis Disposition: HOME, SELF-CARE Admitting Provider: [facility] Instructions: ([facility]), Urinary Tract Infection ([facility]) Additional Instructions: Please follow-up with your HOUSEKEEPING AID. Take your antibiotics as prescribed. Please return to the ER for any vomiting, worsening pain, fever, any other concerning symptoms. Prescriptions: Cephalexin Monohydrate [Keflex 500 mg Capsule] 500 mg PO QID 7 Days #28 capsule Referrals: LOCALMD,NO [Primary Care Provider] - Follow up as needed
[2020-01-10 04:54] LABS: ALBUMIN 3.5 g/dL (3.5-5.0); ALKALINE PHOSPHATASE 50 U/L (38-126); ANION GAP 10 (5-19); ASPARTATE AMINO TRANSFERASE 20 U/L (14-36); BILIRUBIN,TOTAL 0.3 mg/dL (0.2-1.3); BLOOD UREA NITROGEN 5 mg/dL (7-20); CARBON DIOXIDE 21 mmol/L (22-30); CHLORIDE 104 mmol/L (98-107); GLUCOSE 87 mg/dL (75-110); TOTAL PROTEIN 6.3 g/dL (6.3-8.2)
--- NOTE | 2020-01-10 05:13 | RADIOLOGY REPORT (SQ) ---
Obstetric ultrasound: 01/10/2020 4:10 AM RE[employer] HISTORY: 24-year-old female with left-sided abdominal pain. TECHNIQUE: Multiple grayscale and color Doppler images of the pelvis were obtained transabdominally. COMPARISON: None available for this . FINDINGS: A single intrauterine gestation is seen, which is breech in position. The placenta is anterior in location, and free of internal os of the cervix. The estimated heart rate is approximately 125 bpm. The cervix measures at least 3.3 cm in length. The AMANDA is subjectively within normal limits with the deepest vertical pocket of approximately 3.5 cm. The bilateral ovaries were not well visualized. The following measurements were obtained: BPD: 4.2 cm, consistent with 18 weeks and 4 day(s). HC: 15.4 cm, consistent with 18 weeks and 2 day(s). AC: 13.4 cm, consistent with 18 weeks and 6 day(s). FL: 2.7 cm, consistent with 18 weeks and 2 day(s). The estimated weight is approximately 246 g +/- 15%. The fetus measures at 18 weeks and 4 day(s) by AUA, consistent with an estimated due date of 06/08/20. This is different than the prior estimated due date of 06/07/2020. IMPRESSION: A single, live intrauterine gestation is seen which is currently breech in position. The fetus measures at 18 weeks and 4 day(s) by AUA, consistent with an estimated due date of 06/08/2020.. 2.Detailed anatomic assessment was not performed. Interval follow-up with an obstetric care provider is recommended.
--- NOTE | 2020-01-10 05:25 | RADIOLOGY REPORT (SQ) ---
RENAL ULTRASOUND: 01/10/2020 4:22 AM [employer]OR [employer] CLERK HISTORY: 24-year old with left-sided flank pain. COMPARISON: None available TECHNIQUE: Limited sonographic evaluation of the kidneys was performed. FINDINGS: Both kidneys demonstrate normal cortical echogenicity. The right kidney measures up to 10.0 cm in length. The left kidney measures up to 12.6 cm in length. There is mild right and moderate left hydronephrosis present which is more than what would be expected for . No free intraperitoneal fluid is seen. The visualized portions of the urinary bladder appear grossly unremarkable. Bilateral ureteral jets are seen. The abdominal aorta and inferior vena cava are not well visualized. A single intrauterine gestation is partially visualized. IMPRESSION: There is mild right and moderate left hydronephrosis.
[2020-01-10] MEDS ORDERED: NORMAL SALINE 1000 ML 1,000 ML IV ONE (05:36)
[2020-01-10] MEDS ORDERED: CEFTRIAXONE 1 GM/D5W RTU 1 GM/50 ML RTUPB IV ONE (05:52)
[2020-01-10] MEDS ORDERED: ACETAMINOPHEN 325 MG TABLET PO ONE (06:07)
[2020-01-10 06:55] VITALS: BP 100/64
== END 2020-01-10 07:20 | disposition home or self-care (01) ==
LOC: ER 00:11
DX: O23.42 Unspecified infection of urinary tract in pregnancy, second trimester (principal); O99.891 Other specified diseases and conditions complicating pregnancy; N13.30 Unspecified hydronephrosis; O26.892 Other specified pregnancy related conditions, second trimester; R39.15 Urgency of urination; R10.9 Unspecified abdominal pain; R35.0 Frequency of micturition; R30.0 Dysuria; R10.32 Left lower quadrant pain; R11.0 Nausea; Z3A.18 18 weeks gestation of pregnancy; Z88.8 Allergy status to other drugs, medicaments and biological substances
CPT/HCPCS: 99285; 96361; 96365; 36415; 87086; 85025; 87088; 80053; 81001; 87186; 76770; 76805; 93976; J3490; J7030; J0696